=== PATIENT | female | born 1955 | race Caucasian/White ===

== ENCOUNTER 2017-03-17 21:03 | Emergency (ER) | payer OTHER ==
[~2017-03-17] VITALS: Ht 160 cm; Wt 68.0 kg
[2017-03-17] MEDS ORDERED: ZOLOFT25 MG ORAL (21:05)
[2017-03-17] MEDS ORDERED: IMITREX50 MG ORAL (21:05)
[2017-03-17 21:16] VITALS: BP 97/59
--- NOTE | 2017-03-17 21:27 | Emergency Room Report ---
History of Present Illness General Chief Complaint: Generalized Weakness Source: Patient Present Illness HPI 61YOF BIBEMS for AMS Was shopping at shopping center, came out of store, couldnt find car (EMS noting slurred speech) No facial droop. Generalized weakness No history of HTN No prior CVA history History of panic attacks - took Xanax this morning but nothing else later in the day Allergies: Coded Allergies: No Known Allergies (Unverified , 03/17/17) Patient History Past Medical History: psych hx Past Surgical History: none Pertinent Family History: none Social History: Denies: alcohol use, drug use, smoking Last Menstrual Period: n/a Now: No Immunizations: UTD Reviewed Nursing Documentation: PMH: Agreed, PSxH: Agreed Nursing Documentation-PMH Past Medical History: No History, Except For Hx Seizures: Yes - 3 years ago Review of Systems All Other Systems: negative except mentioned in HPI Physical Exam Vital Signs Date Time Temp Pulse Resp B/P Pulse Ox O2 Delivery O2 Flow Rate FiO2 03/17/17 20:57 97.9 76 16 97/59 99 Room Air Sp02 EP Interpretation: reviewed, normal General Appearance: normal inspection, well appearing, no apparent distress, alert, GCS 15, non-toxic, other - slurring speech, slow speech Head: normocephalic, atraumatic Eyes: bilateral eye PERRL, bilateral eye other - EOMI are delayed, weak ENT: normal ENT inspection, hearing grossly normal, normal voice Neck: normal inspection, full range of motion, supple, no bony tend Respiratory: normal inspection, lungs clear, normal breath sounds, no respiratory distress, no retraction, no wheezing Cardiovascular #1: regular rate, rhythm, no edema Gastrointestinal: normal inspection, normal bowel sounds, non tender, soft, no guarding, no hernia Genitourinary: no CVA tenderness Musculoskeletal: normal inspection, back normal, normal range of motion, Ana Maria' s Sign negative Neurologic: normal inspection, alert, oriented x3, responsive, 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 Troponin 0. Likely polysubstance abuse/OD on medications Observed in the ED until clinically sober Patient ambulated with steady gait out of ER DC home EKG Diagnostic Results Rate: normal Rhythm: NSR ST Segments: no acute changes ASA given to the pt in ED: No Last Vital Signs Date Time Temp Pulse Resp B/P Pulse Ox O2 Delivery O2 Flow Rate FiO2 03/17/17 21:16 97.9 74 16 97/59 99 Room Air Status: improved Disposition: HOME, SELF-CARE JOANA CEJA M.D. Mar 17, 2017 21:27
[2017-03-17 22:00] LABS: APPEARANCE,URINE CLEAR; KETONES,URINE 1+ (NEGATIVE); LEUKOCYTE ESTERASE ,URINE 1+ (NEGATIVE); NITRITE,URINE NEGATIVE (NEGATIVE); PH,URINE 5 (4.5-8.0); PROTEIN,URINE 1+ (NEGATIVE); UROBILINOGEN,URINE 1 MG/DL (0.0-1.0)
[2017-03-17 22:03] LABS: BASOPHILS % (AUTO) 1.2 % (0.0-2.0); EOSINOPHILS % (AUTO) 4.1 % (0.0-3.0); LYMPHOCYTES % (AUTO) 43.4 % (20.0-45.0); MEAN CORPUSCULAR HEMOGLOBIN 33.5 PG (27.0-31.0); MEAN CORPUSCULAR HGB CONC 34.4 G/DL (32.0-36.0); MEAN CORPUSCULAR VOLUME 97 FL (80-99); MEAN PLATELET VOLUME 10.3 FL (6.5-10.1); MONOCYTES % (AUTO) 7.8 % (1.0-10.0); NEUTROPHILS % (AUTO) 43.6 % (45.0-75.0); PLATELET COUNT 184 K/UL (150-450); RED BLOOD COUNT 3.37 M/UL (4.20-5.40); RED CELL DISTRIBUTION WIDTH 11.9 % (11.6-14.8); WHITE BLOOD COUNT 7.4 K/UL (4.8-10.8)
[2017-03-17 22:07] LABS: PROTHROMBIN TIME 10.4 SEC (9.30-11.50)
[2017-03-17 22:13] LABS: TROPONIN I < 0.30 ng/mL (<=0.30)
[2017-03-17 22:15] LABS: BACTERIA,URINE FEW /HPF; ICTOTEST NEGATIVE; RBC,URINE 0-2 /HPF (0 - 2); SQUAMOUS EPITHELIAL CELL,UR FEW /LPF (NONE/OCC)
[2017-03-17 22:17] LABS: ALBUMIN/GLOBULIN RATIO 1.6 (1.0-2.7); CHOLESTEROL/HDL RATIO 3.7 (3.3-4.4); CREATININE 1.1 mg/dL (0.5-0.9); GLOMERULAR FILTRATION RATE 50.3 mL/min (>60); POTASSIUM 3.8 mEQ/L (3.4-4.9); TOTAL PROTEIN 6.6 g/dL (6.6-8.7)
[2017-03-17 22:31] VITALS: BP 92/60
[2017-03-17 23:30] VITALS: BP 89/60
[2017-03-18 01:00] VITALS: BP 95/63
[2017-03-18 03:00] VITALS: BP 105/67
--- NOTE | 2017-03-18 09:47 | Diagnostic Imaging Report ---
Indications: Altered mental status Technique: Spiral acquisitions obtained through the brain. Angled axial and coronal 5 x 5 mm slices were reconstructed. Total dose length product 1263 mGycm. CTDI vol(s) 70 mGy. Dose reduction achieved using automated exposure control Comparison: None Findings: There is frontal cortical volume loss bilaterally. Normal size ventricles. No acute hemorrhage or edema. No mass effect or midline shift. There is an old lacunar infarct in the right hippocampal region. Normal aaron-white differentiation. There is questionably a lacunar infarct in the left or nucleus. Intact calvarium. Visualized orbits are unremarkable. There is minimal bilateral sphenoid sinus disease. Impression: Negative for acute intracranial bleed or mass effect Age-related volume loss in the bilateral frontal cortices Old bilateral lacunar infarcts Sinus disease This agrees with the preliminary interpretation provided overnight by [facility]. The CT scanner at [facility] is accredited by the [employer] and the scans are performed using protocols designed to limit radiation exposure to as low as reasonably achievable to attain images of sufficient resolution adequate for diagnostic evaluation.
== END 2017-03-18 03:10 | disposition home or self-care (01) ==
LOC: EDBD 21:03 → EMR 21:23 → CANBEDREQ 22:49 → EMR 03-18 03:10
DX: R41.82 Altered mental status, unspecified (principal); R47.81 Slurred speech; F19.10 Other psychoactive substance abuse, uncomplicated; J32.9 Chronic sinusitis, unspecified
CPT/HCPCS: 36415; 70450; 80053; 80061; 80300; 80329; 81003; 82962; 84484; 85025; 85610; 85730; 93005; 96374; 96375

== ENCOUNTER 2017-08-30 22:26 | Emergency (ER) | payer OTHER ==
[~2017-08-30] VITALS: Ht 162.6 cm; Wt 67.1 kg
[~2017-08-30 22:26] MED LIST: IMITREX50 MG ORAL; ZOLOFT25 MG ORAL
[2017-08-31] VITALS: BP 143/89
[2017-08-31] MEDS ORDERED: IBUPROFEN600 MG ORAL (00:05)
--- NOTE | 2017-08-31 00:06 | Emergency Room Report ---
History of Present Illness General Chief Complaint: Multiple Trauma/Fall Source: Patient Present Illness HPI This is a 62-year-old female who presents with chief complaint of head injury. She said that she been working very hard and with lack of sleep. She fell backward from the stool and hit her head on the ground. No loss of consciousness. No active bleeding. She also fell yesterday and injuring her left elbow. Denies any other injury. Pain is 7/10. Allergies: Coded Allergies: No Known Allergies (Unverified , 03/17/17) Patient History Past Medical History: see triage record, old chart reviewed Past Surgical History: other Pertinent Family History: none Social History: Denies: smoking Last Menstrual Period: 2007 Now: No : 1 Para: 1 Immunizations: other Reviewed Nursing Documentation: PMH: Agreed, PSxH: Agreed Nursing Documentation-PMH History Of Psychiatric Problem: Yes - Anxiety, Depression Hx Seizures: Yes - 2013 Review of Systems Eye: Denies: eye pain, blurred vision ENT: Denies: ear pain, nose congestion, throat swelling Respiratory: Denies: cough, shortness of breath Cardiovascular: Denies: chest pain, palpitations Gastrointestinal: Denies: abdominal pain, diarrhea, nausea, vomiting Musculoskeletal: Reports: joint pain, Denies: back pain Skin: Denies: rash Neurological: Denies: headache, numbness Endocrine: Denies: increased thirst, increased urine Hematologic/Lymphatic: Denies: easy bruising All Other Systems: negative except mentioned in HPI Physical Exam Vital Signs Date Time Temp Pulse Resp B/P (MAP) Pulse Ox O2 Delivery O2 Flow Rate FiO2 08/30/17 22:35 98.4 98 16 151/89 93 Room Air vitals with high blood pressure Sp02 EP Interpretation: reviewed, normal General Appearance: well appearing, no apparent distress, alert Head: normocephalic, other - 3 cm jagged laceration to the occiput. No foreign body. Eyes: bilateral eye PERRL, bilateral eye EOMI ENT: hearing grossly normal, normal pharynx Neck: full range of motion, supple, no meningismus Respiratory: chest non-tender, lungs clear, normal breath sounds Cardiovascular #1: regular rate, rhythm, no murmur Gastrointestinal: normal bowel sounds, non tender, no mass, no organomegaly, no bruit, non-distended Musculoskeletal: back normal, gait/station normal, normal range of motion, tender - Ecchymosis to the left posterior elbow. Full range of motion. No deformity. Sensation normal. Neurologic: alert, oriented x3 Psychiatric: mood/affect normal Skin: warm/dry Procedures Laceration/Wound Repair Laceration/Wound Repair : Consent: Verbal Wound Location: head Wound's Depth, Shape: irregular, stellate, contused tissue Wound Length (cm): 3 Wound Explored: clean Irrigated w/ Saline (ccs): 500 Betadine Prep?: No Anesthesia: Lidocaine w/ Epi Volume Anesthetic (ccs): 5 Wound Debrided: minimal Wound Repaired With: sutures Suture Size/Type: 3:0, proline Number of Sutures: 5 Patient Tolerated: Well Complications: None Medical Decision Making Diagnostic Impression: Primary Impression: Head injury, acute Qualified Codes: S09.90XA - Unspecified injury of head, initial encounter Additional Impressions: Scalp laceration Qualified Codes: S01.01XA - Laceration without foreign body of scalp, initial encounter Left elbow contusion Qualified Codes: S50.02XA - Contusion of left elbow, initial encounter ER Course Patient with a head injury suspect overmedication or side effect of her medication. No fracture or dislocation. No bleed. We'll discharge home. Other X-Ray Diagnostic Results Other X-Ray Diagnostic Results : X-Ray ordered: Left elbow x-rays # of Views/Limited Vs Complete: 4 View Indication: Pain EP Interpretation: Yes Interpretation: no dislocation, no soft tissue swelling, no fractures Impression: No acute disease Electronically Signed by: Salazar Willingham MD Last Vital Signs Date Time Temp Pulse Resp B/P (MAP) Pulse Ox O2 Delivery O2 Flow Rate FiO2 08/30/17 22:35 98.4 98 16 151/89 93 Room Air Status: improved Disposition: HOME, SELF-CARE Condition: Stable Scripts Ibuprofen* (MOTRIN*) 600 Mg Tablet 600 MG ORAL THREE TIMES A DAY, #30 TAB 0 Refills Prov: SALAZAR WILLINGHAM M.D. 08/31/17 Referrals: [facility],REFERRING (PCP) Additional Instructions: Followup with your DrFrances in 7 days. Suture out in 5-7 days. Return if worse. SALAZAR WILLINGHAM M.D. Aug 31, 2017 00:06
[2017-08-31 00:15] VITALS: BP 143/89
--- NOTE | 2017-08-31 08:23 | Diagnostic Imaging Report ---
Indication: Head trauma Technique: Continuous helical CT scanning of the head was performed without intravenous contrast material. Axial and coronal 5 mm sections were generated. Dose: Total Dose Length Product - DLP [birth year][address] Dose Index - CTDIvol(s) 70.38 x 2 mGy. Automated exposure control was utilized for dose reduction. Comparison: 03/17/2017 Findings: There is prominence of frontal sulci. The ventricles are normal. A small rounded low density lesion is noted to the right of the lateral humeral plate cistern, unchanged. There is no shift of midline structures. No other abnormal extra-axial fluid collections are noted. There is no evidence of intracerebral bleeding. No other abnormal high or low density areas are noted within the brain. There is soft tissue swelling in the occipital scalp on the right. Impression: Mild frontal atrophy. Right occipital scalp swelling. Probable cyst adjacent to the right quadrigeminal plate cistern. No acute abnormality. No change from prior exam. The above report is concordant with preliminary reading by [facility] . The CT scanner at [facility] is accredited by the [employer] and the scans are performed using protocols designed to limit radiation exposure to as low as reasonably achievable to attain images of sufficient resolution adequate for diagnostic evaluation.
--- NOTE | 2017-08-31 09:16 | Diagnostic Imaging Report ---
Indication: Reason For Exam: TRAUMA Technique: XRAY Elbow Min 3v L Comparison: None. Findings: The osseous structures are intact. There is no fracture or destruction. The visualized joints are normal. The soft tissues are unremarkable. Impression: Negative examination.
== END 2017-08-31 00:15 | disposition home or self-care (01) ==
LOC: EMR 23:00
DX: S01.01XA Laceration without foreign body of scalp, initial encounter (principal); S50.02XA Contusion of left elbow, initial encounter; F32.9 Major depressive disorder, single episode, unspecified; W19.XXXA Unspecified fall, initial encounter; Y92.9 Unspecified place or not applicable; F41.9 Anxiety disorder, unspecified
CPT/HCPCS: 12002; 70450; 73080; 99284; Z7502

== ENCOUNTER 2018-10-01 13:07 | Emergency (ER) | payer OTHER ==
[~2018-10-01] VITALS: Ht 162.6 cm; Wt 69.4 kg
[~2018-10-01 13:07] MED LIST changes: +IBUPROFEN600 MG ORAL
[2018-10-01] MEDS ORDERED: QUETIAPINE FUM200 MG ORAL (13:20)
--- NOTE | 2018-10-01 13:23 | NUR ---
ED Nurse Note: patient walked into ED c/o lower back pain, right side mainly, shooting that radiates to the leg for 48 hours. Patient reports that motrin usually helps but not this time. 8/10 pain. denies any injury
[2018-10-01 13:25] VITALS: BP 148/94
--- NOTE | 2018-10-01 14:18 | NUR ---
ED Nurse Note: urine collected
[2018-10-01] MEDS ORDERED: Ketorolac 30mg Inj IM ONE (14:30)
[2018-10-01 14:32] LABS: APPEARANCE,URINE CLEAR; BILIRUBIN, URINE NEGATIVE (NEGATIVE); COLOR,URINE PALE YELLOW; GLUCOSE, URINE (UA) NEGATIVE (NEGATIVE); KETONES,URINE NEGATIVE (NEGATIVE); LEUKOCYTE ESTERASE ,URINE 1+ (NEGATIVE); NITRITE,URINE NEGATIVE (NEGATIVE); PH,URINE 7 (4.5-8.0); PROTEIN,URINE NEGATIVE (NEGATIVE); UROBILINOGEN,URINE NORMAL MG/DL (0.0-1.0)
--- NOTE | 2018-10-01 15:10 | Emergency Room Report ---
History of Present Illness General Chief Complaint: Lower Back Pain or Injury Source: Patient Present Illness HPI 63-year-old female presents to the emergency department complaining of 9 out of 10 in severity low back pain that radiates across the back as well as down the right posterior thigh since yesterday early afternoon. Patient reports she has had similar symptoms in the past which resolved easily with Motrin. Patient states that she is taken Motrin several times of no relief of her symptoms and is therefore concerned. Patient denies notable strenuous activities, trauma, fall,recent spinal procedures or hx of Ca. Pt. denies fevers or chills. She states pain is exacerbated with standing up straight, lying flat, and bending forward. denies hematuria, frequency, or dysuria. Denies saddle anesthesia, or weakness in gross motor movements of the LE's. Allergies: Coded Allergies: No Known Allergies (Unverified , 03/17/17) Patient History Past Medical History: see triage record Past Surgical History: none Pertinent Family History: none Last Menstrual Period: menopause Now: No Reviewed Nursing Documentation: PMH: Agreed; PSxH: Agreed Nursing Documentation-PMH Past Medical History: No History, Except For History Of Psychiatric Problem: Yes - bipolar/ depression Hx Seizures: Yes - 2013 Review of Systems All Other Systems: negative except mentioned in HPI Physical Exam Vital Signs Date Time Temp Pulse Resp B/P (MAP) Pulse Ox O2 Delivery O2 Flow Rate FiO2 10/01/18 13:17 98.6 72 16 148/94 94 Room Air Sp02 EP Interpretation: reviewed, normal General Appearance: alert, GCS 15, non-toxic, mild distress Head: normocephalic, atraumatic Eyes: bilateral eye normal inspection, bilateral eye PERRL ENT: hearing grossly normal, normal voice Neck: full range of motion Respiratory: chest non-tender, lungs clear, normal breath sounds, no wheezing, speaking full sentences Cardiovascular #1: regular rate, rhythm, no edema, normal capillary refill Gastrointestinal: non tender, soft Genitourinary: normal inspection, no CVA tenderness Musculoskeletal: back normal, gait/station normal, normal range of motion, tender - Tenderness to palpation to paraspinal muscles of the lower back without midline tenderness. No CVA tenderness. Neurologic: alert, oriented x3, responsive, motor strength/tone normal, sensory intact, normal gait, speech normal, grossly normal Psychiatric: judgement/insight normal Skin: normal color, no rash, warm/dry, well hydrated Medical Decision Making PA Attestation Dr. Llamas is my supervising Physician whom patient management has been discussed with. Diagnostic Impression: Primary Impression: Sciatica of right side Additional Impression: Low back pain Qualified Codes: M54.41 - Lumbago with sciatica, right side ER Course 63-year-old female presents to the emergency department complaining of 9 out of 10 in severity low back pain that radiates across the back as well as down the right posterior thigh since yesterday early afternoon. Patient reports she has had similar symptoms in the past which resolved easily with Motrin. Patient states that she is taken Motrin several times of no relief of her symptoms and is therefore concerned. Patient denies notable strenuous activities, trauma, fall,recent spinal procedures or hx of Ca. Pt. denies fevers or chills. She states pain is exacerbated with standing up straight, lying flat, and bending forward. denies hematuria, frequency, or dysuria. Denies saddle anesthesia, or weakness in gross motor movements of the LE's. Ddx considered: epidural abscess, fracture, sprain/strain, meningitis, spinal chord injury, sciatica, cauda equina, Pyelonephritis, renal calculi just to name a few. Vital signs reviewed and are WNL during ED visit. Pt. is afebrile with no signs of infection No new symptoms, and denies recent trauma. No saddle anesthesia noted, Pt. denies incontinence Neurovascular is intact ROM is limited due to pain however pt. is ambulatory and able to partake in physical exam. * Mild Tenderness to palpation to paraspinal muscles of the lower back without midline tenderness. No CVA tenderness. *Pt. describes pain today as moderate and radiates across the lower back. ORDERS: UA- Unremarkable INTERVENTIONS: - 20mg IM Toradol -Lidoderm - Soma -I do not identify an emergent condition at this time. With current presentation , pt. is stable for close outpatient follow up and conservative treatment. D/ w pt. to return promptly to ED with worsening or new symptoms.- Pt. verbalizes' understanding and agreement with proposed treatment plan. DISCHARGE: At this time pt. is stable for d/c to home. Will provide printed patient care instructions, and any necessary prescriptions. Care plan and follow up instructions have been discussed with the patient prior to discharge. Labs Test 10/01/18 14:20 Urine Color Pale yellow Urine Appearance Clear Urine pH 7 (4.5-8.0) Urine Specific [place] 1.005 (1.005-1.035) Urine Protein Negative (NEGATIVE) Urine Glucose (UA) Negative (NEGATIVE) Urine Ketones Negative (NEGATIVE) Urine Blood 2+ (NEGATIVE) Urine Nitrite Negative (NEGATIVE) Urine Bilirubin Negative (NEGATIVE) Urine Urobilinogen Normal MG/DL (0.0-1.0) Urine Leukocyte Esterase 1+ (NEGATIVE) Urine RBC 2-4 /HPF (0 - 2) Urine WBC 0-2 /HPF (0 - 2) Urine Squamous Epithelial Cells Occasional /LPF Urine Bacteria Occasional /HPF (NONE) Last Vital Signs Date Time Temp Pulse Resp B/P (MAP) Pulse Ox O2 Delivery O2 Flow Rate FiO2 10/01/18 13:25 98.6 72 16 148/94 94 Room Air Disposition: HOME, SELF-CARE Condition: Stable Scripts Naproxen* (NAPROXEN*) 500 Mg Tablet.dr 500 MG ORAL TWICE A DAY for 10 Days, #20 TAB Prov: Domitila Ordaz 10/01/18 Lidocaine (Lidoderm) 1 Each Adh..patch 1 PATCH TOPIC DAILY, #30 PATCH 0 Refills Patch(es) may remain in place for up to 12 hours in any 24-hour period. Prov: Domitila Ordaz 10/01/18 Methocarbamol* (ROBAXIN-750*) 750 Mg Tablet 750 MG PO QID for 7 Days, #28 TAB 0 Refills Prov: Domitila Ordaz 10/01/18 Referrals: [facility],REFERRING (PCP) Patient Instructions: Back Pain, Adult, Sciatica, [id number] Additional Instructions: Take medications as directed. Follow up with a Primary Care Provider in 3-5 days, even if your symptoms have resolved. --Please review list of primary care clinics, if you do not already have a primary care provider Return sooner to ED if new symptoms occur, or current symptoms become worse. Do not drink alcohol, drive, or operate heavy machinery while taking Robaxin ( Muscle Relaxers) as this may cause drowsiness. - Please note that this Emergency Department Report was dictated using [employer] service technician technology software, occasionally this can lead to erroneous entry secondary to interpretation by the dictation equipment. Domitila Ordaz Oct 01, 2018 15:10
[2018-10-01] MEDS ORDERED: ROBAXIN-750750 MG PO (15:13)
[2018-10-01] MEDS ORDERED: LIDODERM700 M1 TOPIC (15:13)
[2018-10-01] MEDS ORDERED: NAPROXEN500 M1 ORAL (15:13)
--- NOTE | 2018-10-01 15:20 | NUR ---
ER DISCHARGE NOTE: Patient is cleared to be discharged per ERMD, pt is aox4, on room air, with stable vital signs. pt was given dc instructions, pt was able to verbalize understanding, pt id band removed pt is able to ambulate with steady gait. pt took all belongings.
[2018-10-01 15:27] VITALS: BP 148/94
== END 2018-10-01 15:20 | disposition home or self-care (01) ==
LOC: EMR 13:59
DX: M54.41 Lumbago with sciatica, right side (principal); F31.9 Bipolar disorder, unspecified; F32.9 Major depressive disorder, single episode, unspecified
CPT/HCPCS: 81003; 96372; 99283; J1885